=== PATIENT | male | born 1995 | race Caucasian/White ===

== ENCOUNTER 2018-08-05 10:47 | Emergency (ER) | payer BC ==
[~2018-08-05] VITALS: Ht 177.8 cm; Wt 68.2 kg
[2018-08-05 11:12] VITALS: BP 117/56; TEMP 98.1
[2018-08-05 12:09] LABS: COLLECTION METHOD CLEAN CATCH
[2018-08-05 12:16] LABS: MUCOUS Present /lpf; PH 5 (5-8); SQUAMOUS EPITHELIAL 0-2 /hpf; URINE APPEARANCE Clear; URINE BACTERIA None Seen /hpf; URINE BILIRUBIN Negative (NEGATIVE); URINE BLOOD Negative (NEGATIVE); URINE COLOR Yellow; URINE GLUCOSE Negative (NEGATIVE); URINE KETONE Negative (NEGATIVE); URINE LEUKOCYTE ESTERASE Negative (NEGATIVE); URINE NITRATE Negative (NEGATIVE); URINE PROTEIN(semi-quant) Negative (NEGATIVE); URINE RBC None Seen /hpf; URINE UROBILINOGEN Negative (NEGATIVE)
[2018-08-05] MEDS ORDERED: LEVAQUIN 5500 MG/TA1 PO (12:55)
[2018-08-05 13:52] VITALS: PULSE 71
== END 2018-08-05 13:52 | disposition home or self-care (01) ==
LOC: COL.ER 10:47
PROVIDERS: Emergency Medicine
DX: N45.1 Epididymitis (principal)